=== PATIENT | male | born 1965 | race Caucasian/White ===

== ENCOUNTER 2017-09-14 11:06 | Emergency (ER) | payer OTHER ==
[2017-09-14] MEDS ORDERED: Metoprolol Tartrate 25 MG Tab PO ONE (12:01)
[2017-09-14] MEDS ORDERED: Metoprolol Tartrate 5 MG/5 ML SDV IVPUSH ONE (13:16)
[2017-09-14] MEDS ORDERED: Metoprolol Succinate 25 MG Tab.ER PO ONE (13:19)
[2017-09-14] MEDS ORDERED: Sodium Chloride 0.9% 1,000 ML IV SCH (13:30)
[2017-09-14] MEDS ORDERED: Hydrochlorothiazide 12.5 MG Cap PO SCH (15:00)
--- NOTE | 2017-09-14 16:26 | PROC ---
DATE OF PROCEDURE: 09/14/2017 PROCEDURE PERFORMED: CT head without contrast, 8172. INDICATION: Hypertensive urgency, headache. PROCEDURE IN DETAIL: Serial contiguous 2.5 and 5 mm sections were obtained through the brain without contrast, September 14, 2017-no comparisons were available. Total exam DLP was 950.31 milligray-centimeters. No shift of midline structures, ventricular abnormalities or abnormal areas of density were identified. No acute intracranial abnormality was seen-no bleeding site or hematoma was noted. Calcifications are noted in the internal carotid arteries. Paranasal sinuses and mastoid air cells are well aerated. No cranial abnormality was seen. IMPRESSION: Except for calcifications in the internal carotid arteries, normal- appearing CT brain without contrast. Report was called to Dr. Morales at 1345 hours. /[id number] /MODL
--- NOTE | 2017-09-15 12:28 | ER ---
DATE SEEN: 09/14/2017 TIME SEEN: The patient was seen at 1120 hours. HISTORY OF PRESENT ILLNESS: This 52-year-old man, who was working this afternoon, went to the nurse's station at [employer]. He works in maintenance. He had a blood pressure of 224/124. The patient was then sent directly to the ER for further evaluation and treatment. He is not on any medicines. He intermittently gets anxious. Occasionally, feels numbness in his right arm. PAST MEDICAL HISTORY: No history of diabetes, heart disease, bleeding disorder, high blood pressure, asthma, other serious illnesses, hospitalizations, surgeries, cough, fever, chills, pulmonary embolus, venous thromboembolism (VTE). REVIEW OF SYSTEMS: Otherwise negative, although he is found to have mild anxiety. PHYSICAL EXAMINATION: GENERAL: Alert, overweight man at 220 pounds, with mild distress. When I talk to him, his face gets more flushed. He is slightly anxious, but denies being excessively anxious. HEENT: TMs negative. Pharynx without abnormality. [place], no AV nicking and no AV humping. No arterial or venous abnormalities. Optic discs normal. NECK: No bruits. LUNGS: Clear without rales, rhonchi, or wheezes. HEART: S1, S2. No increased S2. ABDOMEN: Soft. No guarding. No abdominal discomfort. GENITALIA: Negative. EXTREMITIES: Without edema. NEURO: Deep tendon reflexes in upper and lower extremities, 1+ and normoactive. Cranial nerves 2 through 12 intact. Upper and lower extremity strength intact. Gait intact. Romberg negative. No past pointing. No pronator drift. Repetitive blood pressures ranged in the 189 to 190 base with 112, 105, to 102. The patient was given doses of metoprolol succinate 25 mg (long-acting). His pressure was still up and a second dose was given for a total of 50 mg of metoprolol succinate. Also given a dose of hydrochlorothiazide 12.5 mg. He had received 3 doses of Lopressor IV to decrease the blood pressure from where it was when he arrived. CAT scan was performed of his head. He had no abnormalities noted, except for those mild calcifications in the carotid arteries, this is abnormal. EKG demonstrated slight ST depression in II, III, aVF suggesting inferior/ischemia of heart, had sinus rhythm. ASSESSMENT Hypertensive urgency and at present mildly refractory to treatment and may require theree med treatment. WHITE COAT SYNDROME. PLAN: Continue with metoprolol 50 mg (succinate) daily, hydrochlorothiazide 12.5 mg daily. Follow up with a doctor in 5 to 7 days. Daily blood pressures at a nonthreatening environment (he felt that anxiety could have increased his blood pressure in the emergency room; however, I do not think that is the total picture, it is just part of the picture of his blood pressure). Mildly overweight, 220 pounds. Encouraged activity and walking. /[id number] PERFECTO/TIFFANY LEON
== END 2017-09-14 15:15 | disposition home or self-care (01) ==
LOC: FB.ED 11:06
DX: I16.0 Hypertensive urgency (principal)
CPT/HCPCS: 36415; 70450; 80053; 81001; 84484; 85025; 93005; 96361; 96374; 99283; A9270; J7040; J3490